=== PATIENT | male | born 1970 | race African-American/Black ===

== ENCOUNTER 2017-01-31 15:13 | Emergency (ER) | payer MEDICARE, MEDICAID ==
[~2017-01-31] VITALS: Ht 162.6 cm; Wt 62.1 kg
[2017-01-31] MEDS ORDERED: ROBAXIN-750750 MG PO (15:36)
[2017-01-31] MEDS ORDERED: IBUPROFEN600 MG ORAL (15:36)
[2017-01-31 15:49] VITALS: BP 124/85
[2017-01-31 15:53] VITALS: BP 124/85
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
== END 2017-01-31 15:55 | disposition home or self-care (01) ==
LOC: EMR 15:40
DX: S80.01XA Contusion of right knee, initial encounter (principal); M54.2 Cervicalgia; M54.9 Dorsalgia, unspecified; I10 Essential (primary) hypertension; N28.9 Disorder of kidney and ureter, unspecified; T14.8 Other injury of unspecified body region; V43.52XA Car driver injured in collision with other type car in traffic accident, initial encounter; Y93.9 Activity, unspecified; Y92.410 Unspecified street and highway as the place of occurrence of the external cause
CPT/HCPCS: 99284